=== PATIENT | male | born 1970 | race Two or more races ===

== ENCOUNTER 2017-03-20 09:53 | Inpatient (IN) | payer OTHER ==
[2017-03-20] VITALS (18 sets, daily range): BP systolic 123–149; BP diastolic 73–106
[~2017-03-20] VITALS: Ht 175.3 cm; Wt 74.8 kg
[~2017-03-20 09:53] MED LIST: ceFAZolin sod 2 GM in D5W 110 ML IVPB ONE
[2017-03-20] MEDS ORDERED: Thrombin 5000 units TOPIC ONE (10:42)
[2017-03-20] MEDS ORDERED: Vancomycin 1gm inj IVPB ONE (10:42)
[2017-03-20] MEDS ORDERED: Bacitracin 50000 Units Vial ONE (10:43)
[2017-03-20] MEDS ORDERED: Bupivacaine w/Epi 0.5% 30ml Vial INJ ONE (10:43)
--- NOTE | 2017-03-20 10:47 | Pre-Procedure Note/Attestation ---
Pre-Procedure Note/Attestation Complete Prior to Procedure Planned Procedure: not applicable Procedure Narrative: Cervical 56 artificial disc replacement and C67 anterior cervical discectomy and fusion with allograft Indications for Procedure Pre-Operative Diagnosis: C56 and C67 herniation Attestation I attest that I discussed the nature of the procedure; its benefits; risks and complications; and alternatives (and the risks and benefits of such alternatives ), prior to the procedure, with the patient (or the patient's legal bottling equipment sales representative). I attest that, if there was a reasonable possibility of needing a blood transfusion, the patient (or the patient's legal bottling equipment sales representative) was given the [facility] standardized written summary, pursuant to the Carlos Angella Blood Safety Act ([place] Health and Safety Code # 1645, as amended). I attest that I re-evaluated the patient just prior to the surgery and that there has been no change in the patient's H&P, except as documented below: KEILY URENA Mar 20, 2017 10:47
--- NOTE | 2017-03-20 10:49 | Brief Operative Note ---
Immediate Post Operative Note Operative Note Chief Complaint: neck pain and radiculopathy Pre-op Diagnosis: C56 and C67 herniation Procedure: Cervical 56 artificial disc replacement and C67 anterior cervical discectomy and fusion with allograft Post-op Diagnosis: same as pre-op Findings: consistent w/pre-op dx studies Surgeon: Adam Echo Tech: Aleena Anesthesia: general Specimen: none Complications: none Condition: stable Estimated Blood Loss: minimal Implant(s) used?: Yes - nuvasive peek sz 6, prodisc C sz 5 KEILY URENA Mar 20, 2017 10:49
[2017-03-20] MEDS ORDERED: AMLODIPINE BESYL5 MG ORAL (11:00)
[2017-03-20] MEDS ORDERED: HYDROmorphone 1mg/ml Carpuject IVP PRN (11:00)
[2017-03-20] MEDS ORDERED: Metoclopramide 10mg/2ml Inj IVP PRN ×2 (11:00→12:45)
[2017-03-20] MEDS ORDERED: Naloxone 0.4mg/ml Inj IVP PRN (11:00)
[2017-03-20] MEDS ORDERED: Norco 5mg/325mg tab ORAL PRN ×2 (11:00→12:45)
[2017-03-20] MEDS ORDERED: Milk of Magnesia 30ml Ud ORAL PRN (11:00)
[2017-03-20] MEDS ORDERED: HYDROmorphone 1mg/ml Carpuject SUBQ PRN (11:00)
[2017-03-20] MEDS ORDERED: Norco 7.5mg/325mg tab ORAL PRN ×3 (11:00→12:45)
[2017-03-20] MEDS ORDERED: Propofol 10mg/ml 20ml IV ONE (11:30)
[2017-03-20] MEDS ORDERED: Dexamethasone 4mg/ml vial ONE (11:30)
[2017-03-20] MEDS ORDERED: fentaNYL 100 mcg/2 mL IV ONE (11:30)
[2017-03-20] MEDS ORDERED: Labetalol 5mg/ml 20ml vial IV ONE (11:30)
[2017-03-20] MEDS ORDERED: NS Irrig 1000ml ONE (11:30)
[2017-03-20] MEDS ORDERED: fentaNYL 250mcg/5ml ONE (11:30)
[2017-03-20] MEDS ORDERED: Propofol 10mg/ml 100ml btl IV ONE (11:30)
[2017-03-20] MEDS ORDERED: LR 1000ml ONE (11:30)
[2017-03-20] MEDS ORDERED: Lidocaine 1% Plain 30 ml INJ ONE (11:30)
[2017-03-20] MEDS ORDERED: Sterile Water Irrig 1000ml IRRIG ONE (11:30)
[2017-03-20] MEDS ORDERED: Zemuron 50mg/5ml Inj IV ONE (11:30)
--- NOTE | 2017-03-20 12:40 | Anethesia Preoperative Eval ---
Anesthesia Pre-op PMH/ROS General Date of Evaluation: Mar 20, 2017 Anesthesiologist: Jaylene ASA Score: ASA 2 Mallampati Score Class I : Soft palate, uvula, fauces, pillars visible Class II: Soft palate, uvula, fauces visible Class III: Soft palate, base of uvula visible Class IV: Only hard plate visible Mallampati Classification: Class II Surgeon: Adam Diagnosis: Neck Pain Surgical Procedure: ACDF C5-6, C6-7 Anesthesia History: none Family History: no anesthesia problems Allergies: Coded Allergies: No Known Allergies (Unverified , 03/19/17) Medications: see eMAR Past Medical History Cardiovascular: Reports: HTN Gastrointestinal/Genitourinary: Reports: GERD Neurologic/Psychiatric: Reports: depression/anxiety Musculoskeletal/Integumentary: Reports: DDD - C5-6, C6-7 Anesthesia Pre-op Phys. Exam Physician Exam Last Vital Signs Date Time Temp Pulse Resp B/P Pulse Ox O2 Delivery O2 Flow Rate FiO2 03/20/17 11:01 97.2 67 18 132/88 97 Room Air Constitutional: NAD Neurologic: CN 2-12 intact Cardiovascular: RRR Respiratory: CTA Gastrointestinal: S/NT/ND Airway Exam Mallampati Score: Class II MO: full ROM: limited Teeth: intact Anesthesia Pre-op A/P Risk Assessment & Plan Assessment: ASA 2 Plan: GA, BIS, Glidescope Status Change Before Surgery: No Pre-Antibiotics Dru gram Ancef IV Given Within 1 Hr of Incision: Yes Time Given: 11:46 Obed Mariee MD Mar 20, 2017 12:40
[2017-03-20] MEDS ORDERED: LR 1000ml 1,000 ML IVLG SCH (12:41)
--- NOTE | 2017-03-20 12:44 | Immediate Post-Op Evaluation ---
Immediate Post-Op Evalulation Immediate Post-Op Evalulation Procedure: ACDF C5-6, C6-7 Date of Evaluation: Mar 20, 2017 Time of Evaluation: 14:20 IV Fluids: 800 LR Blood Products: 0 Estimated Blood Loss: 20 Urinary Output: 200 Blood Pressure Systolic: 148 Blood Pressure Diastolic: 106 Pulse Rate: 85 Respiratory Rate: 16 O2 Sat by Pulse Oximetry: 100 Temperature (Fahrenheit): 97.3 Pain Score (1-10): 3 Nausea: No Vomiting: No Complications 0 Patient Status: awake, reacts, patent, extubated, none Hydration Status: adequate Dru Grams Ancef IV Given Within 1 Hr of Incision: Yes Time Given: 11:46 Obed Mariee MD Mar 20, 2017 12:44
--- NOTE | 2017-03-20 12:44 | 48 Hour Post Anesthesia Eval ---
Post Anesthesia Evaluation Procedure: ACDF C5-6, C6-7 Date of Evaluation: Mar 20, 2017 Time of Evaluation: 16:32 Blood Pressure Systolic: 136 0: 86 Pulse Rate: 81 Respiratory Rate: 18 Temperature (Fahrenheit): 97.3 O2 Sat by Pulse Oximetry: 100 Airway: patent Nausea: No Vomiting: No Pain Intensity: 3 Hydration Status: adequate Cardiopulmonary Status: Stable Mental Status/LOC: patient returned to baseline Follow-up Care/Observations: 0 Post-Anesthesia Complications: 0 Follow-up care needed: N/A Obed Mariee MD Mar 20, 2017 12:44
[2017-03-20] MEDS ORDERED: Atropine Inj 1mg/10ml Syr IV PRN (12:45)
[2017-03-20] MEDS ORDERED: Ketorolac 30mg Inj IV PRN (12:45)
[2017-03-20] MEDS ORDERED: Labetalol 5mg/ml 20ml vial IV PRN (12:45)
[2017-03-20] MEDS ORDERED: Midazolam 2mg/2ml Inj IVP PRN (12:45)
[2017-03-20] MEDS ORDERED: Oxycodone/Acetaminophen 5-325 ORAL PRN (12:45)
[2017-03-20] MEDS ORDERED: LORazepam Inj 2mg/ml 1ml IV PRN (12:45)
[2017-03-20] MEDS ORDERED: DiphenhydrAMINE 50mg/ml Inj IVP PRN (12:45)
[2017-03-20] MEDS ORDERED: fentaNYL 100 mcg/2 mL IV PRN (12:45)
[2017-03-20] MEDS ORDERED: Ketorolac 60mg Inj IV PRN (12:45)
[2017-03-20] MEDS ORDERED: Hydromorphone 0.5mg/0.5ml inj IVP PRN (12:45)
[2017-03-20] MEDS ORDERED: Meperidine 25mg/ml Inj IV PRN (12:45)
[2017-03-20] MEDS ORDERED: Acetaminophen (Non formulary) 100 ML IV ONE (13:00)
--- NOTE | 2017-03-20 15:31 | Diagnostic Imaging Report ---
Indication: PAIN, intraoperative Technique: Intraoperative digital images Comparison: Findings: Intraoperative images document surgical tool projected at the level of the anterior aspect of the C6-7 disc. Subsequent images document placement of disc prosthesis at C5-6, anterior fusion with placement of a disc spacer at C6-7 Impression: Intraoperative imaging, as described
[2017-03-20] MEDS: Dexamethasone 4mg/ml vial IVP SCH (17:06)
[2017-03-20] MEDS: Docusate 100mg tablet ORAL SCH (17:07)
[2017-03-20] MEDS: NS w/KCl 20mEq 1,000 ML IV SCH (18:20)
[2017-03-20] MEDS: ceFAZolin sod 1 GM in D5W 55 ML IV SCH (20:13)
[2017-03-21] VITALS: BP 113/72
[2017-03-21] MEDS: Dexamethasone 4mg/ml vial IVP SCH ×2 (00:13→05:47)
[2017-03-21 04:09] VITALS: BP 109/69
[2017-03-21] MEDS: NS w/KCl 20mEq 1,000 ML IV SCH (05:41)
[2017-03-21] MEDS: ceFAZolin sod 1 GM in D5W 55 ML IV SCH (05:44)
[2017-03-21 08:00] VITALS: BP 117/78
[2017-03-21 08:47] VITALS: BP 117/78
[2017-03-21] MEDS: Docusate 100mg tablet ORAL SCH (08:47)
[2017-03-21] MEDS ORDERED: NORCO 10-325 T1 EACH ORAL (09:14)
--- NOTE | 2017-03-22 05:18 | Discharge Summary ---
DATE OF ADMISSION: 03/20/2017 DATE OF DISCHARGE: 03/21/2017 PROCEDURE PERFORMED DURING ADMISSION: Artificial disk replacement of C5-C6 and fusion of C6-C7. REASON FOR ADMISSION: Herniated nucleus pulposus C5-C6 and C6-C7. DISCHARGE PHYSICAL EXAM: 1. Patient was ambulating with and without the assistance of physical therapy 2. Prior to discharge home incision was clean and dry with minimal swelling 3. Follows commands 4. Alert and oriented 5. Ruiz discontinued, voiding 6. Incentive spirometer at bedside 7. IVF hep locked MOTOR: Demonstrates expected postoperative bulk and tone. Moves biceps, triceps, and deltoid musculature on command. Moves hip flexors, quadriceps, tibialis anterior, EHL, gastrocsoleus musculature on command as well. TREATMENT RENDERED: 1. Daily nursing care 2. Physical Therapy 3. Occupational Therapy 4. Intravenous medications 5. Oral medications 6. Daily postoperative examinations by Spine surgery team CONDITION OF PATIENT ON DISCHARGE: The condition on discharge is stable for discharge to home DISCHARGE INSTRUCTIONS: Our specific instructions relating to physical activity, medications diet and follow-up care are detailed in our standard operative folder and were given to this patient prior to surgery. We will however summarize these briefly as stated below. Regarding physical activity we would like the patient to limit their flexion, extension and rotation. We also require a limitation on their bending lifting and twisting. All medication has been called in prior to surgery to their pharmacy of choice. They can resume their regular diet once tolerated. We would like them to shower and limit soaking the wound in a tub/Jacuzzi/the ocean for a period of one month or until the incision is completely healed. We will have them follow up in our office in three weeks time for their regularly scheduled appointment. They understand to call our office tomorrow to schedule the time for their three week followup appointment. The patient will notify us should they experience any increase in the severity of pain, redness/swelling/ or drainage from their incision. Mohan Medina M.D. DR: Panda JOB#: [id number] CC:
--- NOTE | 2017-03-22 23:48 | Operative Note - Dictated ---
DATE OF OPERATION: 03/20/2017 SURGEON: Mohan Medina MD, orthopedic spine surgeon. PIPE SMOKER MACHINE OPERATOR: Tato Flood M.D. PREOPERATIVE DIAGNOSES: 1. Intractable neck pain. 2. Radiculopathy. 3. Herniation, C5-C6 and C6-C7. 4. Neural foraminal stenosis C5-C6 and C6-C7. POSTOPERATIVE DIAGNOSES: 1. Intractable neck pain. 2. Radiculopathy. 3. Herniation, C5-C6 and C6-C7. 4. Neural foraminal stenosis C5-C6 and C6-C7. PROCEDURE PERFORMED: 1. Anterior cervical discectomy and artificial disc replacement of C5-C6 ProDisc C size 5 height. 2. Anterior cervical discectomy and fusion of C6-C7 using NuVasive cervical size 6, three screws, size 14 mm and Osteocel 1 mL. 3. Use of intraoperative microscope. 4. Motor evoked potential monitoring. 5. Somatosensory evoked potential monitoring. 6. Supervision and interpretation of fluoroscopy. COMPLICATIONS: None. ANESTHESIA: General. ESTIMATED BLOOD LOSS: Less than 100 mL. INDICATIONS FOR SURGERY: This patient is a 46-year-old male, who has a history of diagnoses as listed above. As of result of this, the patient sustained intractable neck pain; radiculopathy; herniation, C5-C6 and C6-C7; neural foraminal stenosis, C5-C6 and C6-C7. We tried a course of conservative management but despite this course there was still a significant component of persistent, recalcitrant neck pain and arm pain. The MRI demonstrated significant neural foraminal compromise secondary to disc herniations at C5-C6 and C6-C7. We had a long discussion with Mary regarding the risks and benefits of surgery. Our discussion included but was not limited to nonoperative management, chiropractic management, another epidural steroid injection as well definitive management in the form of surgery. We recommended an anterior cervical discectomy and artificial disc replacement of C5-C6 ProDisc C size 5 height and anterior cervical discectomy and fusion of C6-C7 using NuVasive cervical size 6, three screws, size 14 mm and Osteocel 1 mL as final definitive management. We reviewed the risks and benefits of surgery with the patient. Our discussion included a comprehensive review of the clinical issues and the nature of the clinical decision. We reviewed the alternatives, including doing nothing. The patient elected to proceed accordingly with anterior cervical discectomy and artificial disc replacement of C5-C6 ProDisc C size 5 height and anterior cervical discectomy and fusion of C6-C7 using NuVasive cervical size 6, three screws, size 14 mm and Osteocel 1 mL. We had a long discussion regarding the risks, alternatives and benefits of surgery. Our description of the risks included a discussion in person as well as a signed consent which detailed all pertinent risks from the procedure itself. Briefly, our discussion included but was not limited to infection, bleeding, pseudarthrosis, spinal cord injury, neurovascular injury, dural tear, CSF leak, neuropathy, paralysis, permanent weakness/drop foot/drop arm, paresthesias, blindness, palsy and weakness. The patient understood there may be a need for a revision surgery or additional procedures. Approach-related complications including dysphonia, dysphagia, blindness, permanent vocal cord and neural injury, hematoma, swallowing and breathing difficulty. Medical complications were reviewed including liver, kidney, shock, cardiopulmonary failure, anesthesia complications including , swelling, damage to the musculature, larynx/voice injury or loss, esophagus/throat, trachea, blood vessels and muscles/muscular sprain and lungs/pneumothorax during this surgical procedure; injury to deeper structures may be temporary or permanent. After this review of risks, the patient understood these and elected to proceed. A written and verbal consent was given. We discussed the pros and cons of all the alternatives. We discussed the uncertainties associated with the decision. Afterwards I assessed the patient's understanding and explored their preferences. All questions were answered and no guarantees were given. Medical clearance was obtained prior to surgery. INTRAOPERATIVE FINDINGS: A broad based disc herniation which was found posterior to a tear/rent in the posterior longitudinal ligament at C5-C6 causing a considerable amount of neural foraminal stenosis with significant encroachment on the neural foramina and spinal cord. DESCRIPTION OF PROCEDURE: Under the benefit of general endotracheal anesthesia and with the assistance of the entire operative team, the patient was moved from the [place] onto the operative table in the supine position. The head was secured and carefully positioned appropriately. Bilateral arms were secured with GelPads and foam and all bony prominences were padded. For the bilateral lower extremities SCD and KARY hose were placed for DVT prophylaxis. A surgical timeout was called which corroborated our planned procedure of anterior cervical discectomy and artificial disc replacement of C5-C6 ProDisc C size 5 height and anterior cervical discectomy and fusion of C6-C7 using NuVasive cervical size 6, three screws, size 14 mm and Osteocel 1 mL. Preoperative antibiotics were administered within 30 minutes of the incision for antibiotic prophylaxis. Using lateral fluoroscopic radiography, the operative levels were delineated. Next the wound was prepped and draped with Chlorhexidine and sterile drapes. An incision was based on lateral fluoroscopy and we centered our incision at the C5-C6 and C6-C7 interspace and next using a standard Ingram-Diane anterior based approach the incision was taken down through the skin and subcutaneous tissues until the vertebral bodies and their corresponding disc spaces were visualized. A needle was placed into the interspace to confirm placement of the operative interspace and we performed the remainder of procedure under microscopic visualization. Next, using a bipolar and Bovie cautery to ensure meticulous hemostasis, the longus colli was mobilized bilaterally and retractors were placed deep to the longus colli bilaterally to address retraction. Next we turned our attention to the radical anterior discectomy. This was initially performed at C5-C6 first by using a 15 blade scalpel followed by narrow pituitaries and a Microsect 5-B curette was used to denude the endplate of all cartilaginous tissue. Next using a Minutta Hilton AM8 drillbit the partial vertebrectomy was performed in a [id number] and layer by layer fashion, and ultimately the posterior uncinate joints bilaterally and posterior osteophytic lips and margins causing central and lateral impingement were carefully denuded until visualization of the posterior longitudinal ligament was possible. An endplate preparation was performed in the exact same fashion using an intervertebral interactive designer, sequential distraction was obtained throughout the disc space. We saw a tear/rent in the PLL and this was carefully mobilized and dissected using a micro-set 1-B curet until we visualized a broad-based disc herniation with compression of the spinal cord as well neural foramina. This neural foraminal compression was carefully resected using a Kerrison-1 and Kerrison-2 rongeurs until complete decompression of the spinal cord was visualized and complete decompression of the neural foramina and nerve root therein as well as the axilla and lateral margin of the nerve root was visualized and subsequently completely decompressed. The family was notified at one hour intervals throughout the procedure to provide for consistent updates. We next turned our attention towards trialing our implant within the disc space. We initially tried size 5 and the ProDisc Cervical spacer fit well in regards to depth and width. This implant was opened and prepared. Next under direct visualization I confirmed excellent fit in respect to the anterior and posterior vertebral bodies, the uncinate joints and in regards to toggle. Once satisfied with this placement on serial AP and lateral fluoroscopy I turned my attention towards cutting our flaca. These were cut in the bones using a reciprocating drill and afterwards all free fragments of bone were irrigated. Next FloSeal was placed into the interspace and the implant was inserted using fluoroscopic guidance. Next the Synthes ProDisc C size 5 ADR was then carefully advanced and secured into the intervertebral space under direct visualization and with supervision of AP and lateral fluoroscopic views. Next we turned our attention to the radical anterior discectomy at the C6-C7 level. First by using a 15 blade scalpel followed by narrow pituitaries and a micro-sect 5-B curette was used to denude the endplate of all cartilaginous tissue. Next using a Minutta Hilton AM8 drillbit the partial vertebrectomy was performed in a [id number]-celk and layer by layer fashion, and ultimately the posterior uncinate joints bilaterally and posterior osteophytic lips and margins causing central and lateral impingement were carefully denuded until visualization of the posterior longitudinal ligament was possible. An endplate preparation was performed in the exact same fashion using an intervertebral interactive designer, sequential distraction was obtained throughout the disc space. We saw a tear/rent in the PLL and this was carefully mobilized and dissected using a micro-set 1-B curet until we visualized a broad-based disc herniation with compression of the spinal cord as well neural foramina. This neural foraminal compression was carefully resected using a Kerrison-1 and Kerrison-2 rongeurs until complete decompression of the spinal cord was visualized and complete decompression of the neural foramina and nerve root therein as well as the axilla and lateral margin of the nerve root was visualized and subsequently completely decompressed. We next turned our attention towards trialing our implant within the disc space. We initially tried size 5 and afterwards size 6 trial at each level, which appeared to be appropriate under AP and lateral fluoroscopy as well as in terms of its height, depth, width and lack of toggle. The PEEK polyetheretherketone interbody cages were then both packed with allograft bone from Osteocel and local autograft bone matrix. Next these were then carefully advanced and secured into their intervertebral spaces under direct visualization and with supervision of AP and lateral fluoroscopic views. We next turned our attention towards plating. Plating was performed with Banjo Interlock-C plating system. A total of 3 screws, size 6, 14 mm in length were inserted and confirmed under AP and lateral fluoroscopy and confirmed to be in excellent position. After a finger sweep we confirmed removal of all sponges. The retractor was removed and we next turned our attention to meticulous hemostasis with FloSeal and bipolar cautery. After the sponge and needle count was again found to be correct with our second count, we next turned our attention to closure. The wound was again copiously irrigated with antibiotic impregnated saline. Closure consisted of 4-0 clear nylon for the platysma, and 6-0 clear nylon for the superficial skin. Final skin closure and dressings consisted of Dermabond. Prior to final closure, a final radiograph was obtained which demonstrated the hardware is intact with excellent position throughout. The patient tolerated the procedure well. The patient was carefully extubated after the conclusion of surgery. We discussed the findings of the surgery with the family upon completion of the case. At this point the patient was transferred to the spine floor for further observation. Mohan Medina M.D. DR: ENRIQUE JOB#: [id number] CC:
== END 2017-03-21 09:30 | disposition home or self-care (01) | DRG 473 ==
LOC: SDSOVERFLO 09:53 → 3E 16:00
PROC: 0RG20A0 Fusion of 2 or more Cervical Vertebral Joints with Interbody Fusion Device, Anterior Approach, Anterior Column, Open Approach (ICD-10-PCS; principal; 2017-03-20 12:00)
PROC: 4A11X4G Monitoring of Peripheral Nervous Electrical Activity, Intraoperative, External Approach (ICD-10-PCS; principal; 2017-03-20 12:00)
PROC: 0RT30ZZ Resection of Cervical Vertebral Disc, Open Approach (ICD-10-PCS; principal; 2017-03-20 12:00)
DX: M50.122 Cervical disc disorder at C5-C6 level with radiculopathy (principal); M48.02 Spinal stenosis, cervical region; I10 Essential (primary) hypertension; K21.9 Gastro-esophageal reflux disease without esophagitis
CPT/HCPCS: 36415; 72040; 76001; 86850; 86900; 86901; 87081; 94003; 94150; J2405